=== PATIENT | female | born 1985 | race American Indian/Alaskan Native ===

== ENCOUNTER 2017-09-28 13:36 | Outpatient (CLI) | payer OTHER ==
[2017-09-28 14:40] VITALS: BP 135/78
== END 2017-09-28 14:50 | disposition home or self-care (01) ==
LOC: TRG 13:36
PROVIDERS: ATTEND Obstetrics & Gynecology Gynecology
DX: O48.0 Post-term pregnancy (principal); Z3A.40 40 weeks gestation of pregnancy
CPT/HCPCS: 59025

== ENCOUNTER 2017-10-01 00:21 | Inpatient (IN) | payer OTHER ==
[2017-10-01] MEDS ORDERED: XYLOCAINE 2% INFILTRATI ONE (00:38)
[2017-10-01] MEDS ORDERED: PITOCin/NS 20 UNIT/1000ML DRIP 20,000 MILLIUNITS/1,000 ML BAG IV ONE ×2 (00:42→02:44)
--- NOTE | 2017-10-01 00:55 | Procedure Note ---
OB Delivery Note - Delivery Date of Delivery: 10/01/17 Surgeon: KATELYN LOTT Estimated blood loss: 300cc - Vaginal Delivery presentation: vertex Delivery position: OA Intrapartum events: precipitous labor- <3hr Delivery induction: none Delivery monitor: none Route of delivery: Delivery placenta: spontaneous Delivery cord: nuchal cord (x 2 tight), 3 umbilical vessels Episiotomy: none Delivery laceration: 2nd degree Delivery repair: vicryl Anesthesia: local Delivery comments: Patient with rapid delivery of head. Tight nuchal cord 2 noted, clamped and cut on perineum with subsequent delivery of fetus. transferred to [facility] with NICU staff called. - A at 1 minute: 8 at 5 minutes: 9 Infant Gender: Male (time of delivery was 12:30 AM, infant weight is 8 lbs. 10 oz. or 3916 g)
--- NOTE | 2017-10-01 00:59 | History and Physical Report ---
History of Present Illness Date of examination: 10/01/17 Date of admission: 10/01/17 00:31 Chief complaint: Precipitous labor History of present illness: 32-year-old at 40+5 weeks status post precipitous delivery on labor and delivery, she is a [facility] patient. Past History Past Medical History: no pertinent history Past Surgical History: no surgical history [employer] History: denies: chlamydia, gonorrhea, hepatitis B, hepatitis C, herpes, HIV , syphilis, trichomonas Social history: , full code. denies: smoking, alcohol abuse, prescription drug abuse, IV drug use - Obstetrical History Expected Date of Delivery: 09/26/17 Actual Gestation: 40 Week(s) 5 Day(s) : 3 Para: 3 Medications and Allergies Allergies Allergy/AdvReac Type Severity Reaction Status Date / Time No Known Allergies Allergy Unverified 09/28/17 14:09 Review of Systems Constitutional: no fever, no chills, no weakness Cardiovascular: no chest pain, no syncope, no lightheadedness, no shortness of breath, no dyspnea on exertion, no high blood pressure Respiratory: no cough, no cough with sputum, no shortness of breath, no dyspnea on exertion Gastrointestinal: no abdominal pain, no nausea, no vomiting - Vital Signs Vital signs: Vital Signs Pulse BP 90 126/59 10/01/17 00:40 10/01/17 00:40 Temp Pulse Resp BP Pulse Ox 90 126/59 10/01/17 00:40 10/01/17 00:40 - Physical Exam Abdomen: Positive: normal appearance, soft. Negative: distention, tenderness, guarding, rigidity Genitourinary (Female): Positive: normal external genitalia Uterus: Positive: enlarged (firm and well contracted). Negative: tender Extremities: Positive: normal Results All other labs normal. Assessment and Plan PPD#0 s/p -Doing well P: -Routine care -Anticipate discharge in 24-48 hours - Patient Problems (1) Precipitate labor, with delivery Current Visit: Yes Status: Acute (2) 40 weeks gestation of Current Visit: Yes Status: Acute
[2017-10-01] MEDS ORDERED: TYLENOL PO PRN (01:00)
[2017-10-01] MEDS ORDERED: MILK OF MAGNESIA PO PRN (01:00)
[2017-10-01] MEDS ORDERED: BENADRYL PO PRN (01:00)
[2017-10-01] MEDS ORDERED: LANSINOH TP PRN (01:00)
[2017-10-01] MEDS ORDERED: ANUCORT-HC PR PRN (01:00)
[2017-10-01] MEDS ORDERED: DULCOLAX PR PRN (01:00)
[2017-10-01] MEDS ORDERED: SODIUM CHLORIDE FLUSH SYRINGE 10 ML IV NR (01:00)
[2017-10-01] MEDS ORDERED: PHENERGAN PR PRN (01:00)
[2017-10-01] MEDS ORDERED: ZOFRAN IV PRN (01:00)
[2017-10-01] MEDS ORDERED: TUCKS PAD TP PRN (01:00)
[2017-10-01] MEDS ORDERED: PHENERGAN PO PRN (01:00)
[2017-10-01 01:34] LABS: Hematocrit 39.4 % (30.3-42.9); Hemoglobin 13.3 gm/dl (10.1-14.3); Mean Corpuscular HGB Conc 34 % (30-34); Mean Corpuscular Hemoglobin 32 pg (28-32); Mean Corpuscular Volume 94 fl (79-97); Platelet Count 210 K/mm3 (140-440); Red Cell Distribution Width 16.6 % (13.2-15.2)
[2017-10-01] MEDS: METHERGINE PO SCH ×3 (03:41→18:10)
[2017-10-01] MEDS: NORCO 5/325 PO PRN (03:41)
[2017-10-01] MEDS: MOTRIN PO SCH ×4 (05:09→23:31)
[2017-10-01] MEDS ORDERED: PITOCin/NS 20 UNIT/1000ML DRIP 20 UNITS/1,000 ML BAG IV SCH (08:00)
[2017-10-01] MEDS ORDERED: Fluarix Quad 2017-2018(36 MOS+ IM ONE (11:00)
[2017-10-01] MEDS: PRENATAL VITAMIN PO SCH (11:17)
[2017-10-01] MEDS: FEOSOL PO SCH ×2 (11:18→21:14)
[2017-10-01] MEDS: SENOKOT S PO SCH ×2 (11:18→23:24)
[2017-10-01] MEDS: COLACE PO SCH ×2 (11:18→21:14)
[2017-10-01] MEDS ORDERED: BOOSTRIX IM ONE (12:00)
[2017-10-01 14:10] LABS: Hematocrit 38.2 % (30.3-42.9)
[2017-10-02] MEDS: METHERGINE PO SCH ×3 (01:13→17:55)
[2017-10-02] MEDS: MOTRIN PO SCH ×3 (05:16→17:54)
[2017-10-02] MEDS ORDERED: BOOSTRIX IM ONE (06:00)
--- NOTE | 2017-10-02 08:36 | Progress Note ---
Assessment and Plan PPD#1 s/p -Doing well P: -Routine care -Anticipate discharge in 24-48 hours - Patient Problems (1) Precipitate labor, with delivery Current Visit: Yes Status: Acute (2) 40 weeks gestation of Current Visit: Yes Status: Acute Subjective - Subjective Date of service: 10/02/17 Principal diagnosis: PPD# 1 Interval history: Patient seen and examined, stable doing well. No events overnight no new complaints or issues Patient reports: appetite normal, voiding normally, pain well controlled, flatus , ambulating normally, no dizzy ambulation, no nauseated Objective - Vital Signs Latest vital signs: Vital Signs Temp Pulse Resp BP BP Pulse Ox 10/02/17 01:26 98.3 F 79 20 118/73 98 10/01/17 17:53 98.8 F 78 18 126/80 10/01/17 14:00 98.3 F 74 18 120/70 95 10/01/17 13:56 87 96 10/01/17 13:55 87 120/70 96 Intake and Output 10/01/17 10/02/17 10/02/17 23:59 07:59 15:59 Intake Total 320 Output Total 600 Balance -280 Intake: Oral 320 Output: Urine 600 Void 600 Other: Total, Intake Amount 320 Total, Output Amount 600 - Exam Abdomen: Present: normal appearance, soft. Absent: distention, tenderness, guarding, rigidity Uterus: Present: firm, fundal height below umbilicus Extremities: Present: normal
--- NOTE | 2017-10-02 08:37 | Discharge Summary ---
Providers - Providers Date of Admission: 10/01/17 00:31 Date of discharge: 10/03/17 Attending physician: KATELYN LOTT Primary care physician: KATELYN LOTT Hospitalization Reason for admission: active labor, IUP at term Delivery: Episiotomy: none Laceration: 2nd degree Incision: dry, intact Other procedures: none complications: none Discharge diagnosis: IUP at term delivered [place] baby: male Hospital course: Uncomplicated course Condition at discharge: Good - Discharge Diagnoses (1) Precipitate labor, with delivery Status: Acute (2) 40 weeks gestation of Status: Acute Plan - Discharge Medications Prescriptions: Ibuprofen [Motrin 600 MG tab] 600 mg PO Q8H PRN #30 tablet PRN Reason: Pain Multivitamin with Iron [Multivitamins with Iron] 1 each PO DAILY #30 tablet - Provider Discharge Summary Activity: no sex for 6 weeks, no heavy lifting 4 weeks, no strenuous exercise Diet: routine Additional instructions: [] Smoking cessation referral if applicable(refer to patient education folder for contact #) [] Refer to [facility]'s [facility] Booklet Call your doctor immediately for: * Fever > 100.5 * Heavy vaginal bleeding ( >1 pad per hour) * Severe persistent headache * Shortness of breath * Reddened, hot, painful area to leg or breast * Drainage or odor from incision. * Keep incision clean and dry at all times and follow doctor's instructions regarding bathing/showering - Follow up plan Follow up: KATELYN LOTT MD [Primary Care Provider] - 6 Weeks
[2017-10-02] MEDS: COLACE PO SCH ×2 (10:53→22:59)
[2017-10-02] MEDS: FEOSOL PO SCH ×2 (10:54→22:59)
[2017-10-02] MEDS: PRENATAL VITAMIN PO SCH (10:54)
[2017-10-02] MEDS: SENOKOT S PO SCH (12:21)
[2017-10-02] MEDS: NORCO 5/325 PO PRN (22:59)
[2017-10-03] MEDS: SENOKOT S PO SCH (02:01)
[2017-10-03] MEDS: MOTRIN PO SCH ×4 (02:01→12:00)
[2017-10-03] MEDS: METHERGINE PO SCH (02:01)
[2017-10-03] MEDS: NORCO 5/325 PO PRN ×2 (06:13→12:59)
[2017-10-03] MEDS: FEOSOL PO SCH (10:08)
[2017-10-03] MEDS: COLACE PO SCH (10:08)
[2017-10-03] MEDS: PRENATAL VITAMIN PO SCH (10:08)
[2017-10-03 17:52] VITALS: BP 132/84
== END 2017-10-03 17:00 | disposition home or self-care (01) | DRG 775 ==
LOC: TRG 00:21 → LD 00:22 → TRG 00:31 → LD 00:31 → OB 02:52
PROVIDERS: ADMIT Obstetrics & Gynecology Gynecology; ATTEND Obstetrics & Gynecology Gynecology
PROC: 0KQM0ZZ Repair Perineum Muscle, Open Approach (ICD-10-PCS; principal; 2017-10-01)
PROC: 10E0XZZ Delivery of Products of Conception, External Approach (ICD-10-PCS; 2017-10-01)
PROC: 3E0234Z Introduction of Serum, Toxoid and Vaccine into Muscle, Percutaneous Approach (ICD-10-PCS; 2017-10-01)
DX: O62.3 Precipitate labor (principal); O69.1XX0 Labor and delivery complicated by cord around neck, with compression, not applicable or unspecified; O70.1 Second degree perineal laceration during delivery; Z3A.40 40 weeks gestation of pregnancy; Z37.0 Single live birth; Z23 Encounter for immunization
CPT/HCPCS: 36415; 85014; 85018; 85027; 86592; 86850; 86900; 86901; 90471; 90686; 90715; 99211; A6250; G0008; G0463; J2590